=== PATIENT | female | born 1985 ===

== ENCOUNTER → 2021-10-02 | Outpatient (CLI) | payer OTHER | END | disposition home or self-care (01) | LOC: RX STUDY 10:09 | DX: N88.8 Other specified noninflammatory disorders of cervix uteri (principal) ==

== ENCOUNTER 2025-04-25 09:30 | Inpatient (IN) | payer OTHER ==
[~2025-04-25] VITALS: Ht 154.9 cm; Wt 62.6 kg
[2025-04-25] MEDS ORDERED: RELPAX40 MG PO (10:22)
[2025-04-25] MEDS ORDERED: BUTALBIT-ACETA1 EACH PO (10:23)
[2025-04-25 10:24] VITALS: BP 145/95
[2025-04-25 10:52] VITALS: BP 111/70
[2025-04-25 11:35] LABS: RH POSITIVE
[2025-05-01] MEDS ORDERED: BUPIVACAINE HCL 30 ML VIAL IJ ONE (09:15)
[2025-05-01] MEDS ORDERED: THROMBIN,HU/FIBRINOGEN/CALCIUM 10 ML SYRINGE TOP ONE (09:15)
[2025-05-01] MEDS ORDERED: METRONIDAZOLE/SODIUM CHLORIDE 500 MG/100 ML PIGGYBACK IV ONE (09:15)
[2025-05-01] MEDS ORDERED: LIDOCAINE HCL 1%/EPINEPHRINE 20ML VIAL IJ ONE (09:15)
[2025-05-01] MEDS ORDERED: VISTASEAL DUAL APPICATOR 1 EACH APPL TOP ONE (09:15)
[2025-05-01] MEDS ORDERED: CEFTRIAXONE SODIUM 2,000 MG VIAL IV ONE (09:15)
[2025-05-01] MEDS ORDERED: POVIDONE-IODINE 118 ML BOTT TOP ONE (09:15)
[2025-05-01] MEDS ORDERED: DIBUCAINE 30 GM TUBE RECTAL ONE (10:00)
[2025-05-01] MEDS ORDERED: HEMOSTATIC MATRIX 1 KIT KIT TOP ONE (10:00)
[2025-05-01] MEDS ORDERED: HYDROGEN PEROXIDE 118 ML SOLUTION TOP ONE (10:00)
[2025-05-01] MEDS ORDERED: PANTOPRAZOLE SO40 MG (10:06)
[2025-05-01] MEDS ORDERED: APRI 28 DAY TA1 EACH (10:06)
[2025-05-01] MEDS ORDERED: RINGERS SOLUTION,LACTATED 1,000 ML IV SCH (12:13)
[2025-05-01] MEDS ORDERED: CELECOXIB 200 MG CAPSULE PO STA (12:14)
[2025-05-01] MEDS ORDERED: MORPHINE SULFATE 4 MG/ML VIAL IV ONE (12:45)
[2025-05-01] MEDS ORDERED: GABAPENTIN 100 MG CAPSULE PO SCH (13:00)
[2025-05-01] MEDS ORDERED: ONDANSETRON HCL 2 MG/ML VIAL IV SCH (14:00)
[2025-05-01] MEDS ORDERED: ACETAMINOPHEN 325 MG TABLET PO SCH (14:00)
[2025-05-01 14:12] LABS: BASO % 0.2 % (0.1-1.2); EOS # 0.00 (0.04-0.54); EOS % 0.0 % (0.7-7.0); LYMPH # 0.82 (1.18-3.74); LYMPH % 5.2 % (19.3-53.1); MEAN PLATELET VOLUME 10.40 fl (9.4-12.4); MONO # 0.90 (0.24-0.82); MONO % 5.7 % (4.7-12.5); NEUT # 13.93 (1.56-6.13); NEUT % 88.6 % (34.0-71.1); RED CELL DISTRIBUTION WIDTH 13.4 % (11.6-14.4)
[2025-05-01 15:12] LABS: BUN CREA RATIO 7.0 (7.0-25.0); CREATININE SERUM 0.72 mg/dL (0.55-1.02); GFR 90.65; GLUCOSE FASTING 139.0 mg/dL (65-100); OSMOLALITY SERUM 281.0 MOSM/KG (275-295)
[2025-05-01 16:20] VITALS: BP 111/70
[2025-05-01 19:05] LABS: BASO % 0.1 % (0.1-1.2); EOS # 0.00 (0.04-0.54); EOS % 0.0 % (0.7-7.0); LYMPH # 1.08 (1.18-3.74); LYMPH % 8.2 % (19.3-53.1); MEAN PLATELET VOLUME 10.00 fl (9.4-12.4); MONO # 1.00 (0.24-0.82); MONO % 7.6 % (4.7-12.5); NEUT # 11.11 (1.56-6.13); NEUT % 83.8 % (34.0-71.1); RED CELL DISTRIBUTION WIDTH 13.3 % (11.6-14.4)
[2025-05-02 00:32] VITALS: BP 101/63
[2025-05-02 07:31] LABS: BASO % 0.2 % (0.1-1.2); EOS # 0.02 (0.04-0.54); EOS % 0.2 % (0.7-7.0); LYMPH # 1.89 (1.18-3.74); LYMPH % 21.4 % (19.3-53.1); MEAN PLATELET VOLUME 10.70 fl (9.4-12.4); MONO # 0.91 (0.24-0.82); MONO % 10.3 % (4.7-12.5); NEUT # 5.96 (1.56-6.13); NEUT % 67.7 % (34.0-71.1); RED CELL DISTRIBUTION WIDTH 13.5 % (11.6-14.4)
[2025-05-02 08:04] LABS: BUN CREA RATIO 9.0 (7.0-25.0); CREATININE SERUM 0.55 mg/dL (0.55-1.02); GFR 123.7; GLUCOSE FASTING 94.0 mg/dL (65-100); OSMOLALITY SERUM 286.0 MOSM/KG (275-295)
[2025-05-02 08:39] VITALS: BP 136/87
[2025-05-02] MEDS ORDERED: CELECOXIB 200 MG CAPSULE PO SCH (09:00)
[2025-05-02 16:00] VITALS: BP 113/75
[2025-05-03 00:34] VITALS: BP 113/67
[2025-05-03 08:17] VITALS: BP 133/86; O2SAT 98
== END 2025-05-03 10:10 | disposition home or self-care (01) | DRG 743 ==
LOC: O/R 05-01 08:20 → OB/GYN 05-01 08:20 → SURH 05-01 09:30 → OB/GYN 05-01 14:03 → SURH 05-01 18:45 → OB/GYN 05-03 10:10
PROVIDERS: Surgery; Urology; ADMIT Obstetrics & Gynecology Gynecology; ATTEND Obstetrics & Gynecology Gynecology
PROC: 0DBP4ZZ Excision of Rectum, Percutaneous Endoscopic Approach (ICD-10-PCS; 2025-05-01)
PROC: 0BBT4ZZ Excision of Diaphragm, Percutaneous Endoscopic Approach (ICD-10-PCS; 2025-05-01)
PROC: 0UT94ZZ Resection of Uterus, Percutaneous Endoscopic Approach (ICD-10-PCS; 2025-05-01)
PROC: 0UT74ZZ Resection of Bilateral Fallopian Tubes, Percutaneous Endoscopic Approach (ICD-10-PCS; 2025-05-01)
PROC: 0TNB4ZZ Release Bladder, Percutaneous Endoscopic Approach (ICD-10-PCS; 2025-05-01)
PROC: 0DNW4ZZ Release Peritoneum, Percutaneous Endoscopic Approach (ICD-10-PCS; 2025-05-01)
PROC: 0UN24ZZ Release Bilateral Ovaries, Percutaneous Endoscopic Approach (ICD-10-PCS; 2025-05-01)
PROC: 0DNP4ZZ Release Rectum, Percutaneous Endoscopic Approach (ICD-10-PCS; 2025-05-01)
PROC: 0DNN4ZZ Release Sigmoid Colon, Percutaneous Endoscopic Approach (ICD-10-PCS; 2025-05-01)
PROC: 0DBQ7ZZ Excision of Anus, Via Natural or Artificial Opening (ICD-10-PCS; 2025-05-01)
PROC: 0DTJ4ZZ Resection of Appendix, Percutaneous Endoscopic Approach (ICD-10-PCS; 2025-05-01)
PROC: 0DJD8ZZ Inspection of Lower Intestinal Tract, Via Natural or Artificial Opening Endoscopic (ICD-10-PCS; 2025-05-01)
PROC: 0T784DZ Dilation of Bilateral Ureters with Intraluminal Device, Percutaneous Endoscopic Approach (ICD-10-PCS; 2025-05-01)
PROC: 0UB44ZZ Excision of Uterine Supporting Structure, Percutaneous Endoscopic Approach (ICD-10-PCS; principal; 2025-05-01 18:45)
PROC: 0UBC4ZZ Excision of Cervix, Percutaneous Endoscopic Approach (ICD-10-PCS; 2025-05-01 18:45)
PROC: 0UB74ZZ Excision of Bilateral Fallopian Tubes, Percutaneous Endoscopic Approach (ICD-10-PCS; 2025-05-01 18:45)
DX: D25.1 Intramural leiomyoma of uterus (principal); D25.2 Subserosal leiomyoma of uterus; N72 Inflammatory disease of cervix uteri; N94.0 Mittelschmerz; N80.559 Endometriosis of other parts of the colon, unspecified depth; N94.5 Secondary dysmenorrhea; K60.30 Anal fistula, unspecified; N80.B39 Endometriosis of diaphragm, unspecified depth; N80.203 Endometriosis of bilateral fallopian tubes, unspecified depth; N80.00 Endometriosis of the uterus, unspecified; N80.519 Endometriosis of the rectum, unspecified depth; N80.3C3 Endometriosis of bilateral uterosacral ligament(s), unspecified depth

== ENCOUNTER 2025-08-28 08:00 | Day surgery (SDC) | payer OTHER ==
[2025-08-21 11:10] VITALS: BP 127/85
[~2025-08-28] VITALS: Ht 154.9 cm; Wt 62.6 kg
[~2025-08-28 08:00] MED LIST: APRI 28 DAY TA1 EACH; BUTALBIT-ACETA1 EACH PO; CELECOXIB200 MG PO; INTESTINEX680 M1 PO; NEURONTIN300 MG PO; PANTOPRAZOLE SO40 MG; PERCOCET 5-3251 EACH PO; RELPAX40 MG PO
[2025-08-28] MEDS ORDERED: METRONIDAZOLE/SODIUM CHLORIDE 500 MG/100 ML PIGGYBACK IV ONE (09:09)
[2025-08-28] MEDS ORDERED: CEFTRIAXONE SODIUM 2,000 MG VIAL ONE (09:09)
[2025-08-28] MEDS ORDERED: HEMOSTATIC MATRIX 1 KIT KIT TOP ONE (09:51)
[2025-08-28] MEDS ORDERED: LIDOCAINE HCL 1%/EPINEPHRINE 20ML VIAL IJ ONE (09:52)
[2025-08-28] MEDS ORDERED: POVIDONE-IODINE 118 ML BOTT TOP ONE (09:52)
[2025-08-28] MEDS ORDERED: BUPIVACAINE HCL/MPF 0.5% 30ML VIAL ONE (09:52)
[2025-08-28] MEDS ORDERED: DIBUCAINE 30 GM TUBE ONE (09:52)
== END 2025-08-28 17:20 | disposition home or self-care (01) ==
LOC: CIR.AMB 08:00
PROVIDERS: ATTEND Surgery
DX: K60.321 Anal fistula, complex, initial (principal); K60.1 Chronic anal fissure; R15.9 Full incontinence of feces